=== PATIENT | male | born 1990 | race Caucasian/White ===

== ENCOUNTER 2023-05-19 08:30 | Day surgery (SDC) | payer MEDICARE, MEDICAID ==
[2023-05-06 15:09] LABS: BASOPHILS % (AUTO) 0.7 % (0-1); EOSINOPHILS % (AUTO) 0.3 % (0-6); LYMPHOCYTES # (AUTO) 1.2 X10'3 (1.1-4.8); MEAN CORPUSCULAR HEMOGLOBIN 35.3 PG (27.0-31.0); MEAN CORPUSCULAR HGB CONC 33.8 g/dL (33.0-36.5); MEAN CORPUSCULAR VOLUME 104.2 FL (78-98); MEAN PLATELET VOLUME 7.6 FL (7.4-10.4); MONOCYTES # (AUTO) 0.4 X10'3 (0-0.9); MONOCYTES % (AUTO) 6.3 % (2-12); NEUTROPHILS % (AUTO) 71.7 % (42-75); PRE OP HEMATOCRIT 41.4 % (42.0-52.0); PRE OP PLATELET COUNT 277 X10'3 (140-440); PRE OP WHITE BLOOD COUNT 5.6 10'3 (4.8-10.8); RED BLOOD COUNT 3.98 X10'6 (4.70-6.10); RED CELL DISTRIBUTION WIDTH 15.4 % (11.5-14.5)
[2023-05-06 15:10] LABS: ALBUMIN 3.9 G/DL (3.4-5.0); ALKALINE PHOSPHATASE 84 IU/L (46-116); BLOOD UREA NITROGEN 18 MG/DL (7-18); CALCIUM 8.6 MG/DL (8.5-10.1); CHLORIDE 104 MMOL/L (99-107); CREATININE 1.38 MG/DL (0.60-1.10); PRE OP ALT 71 U/L (30-65); PRE OP BILIRUB, TOTAL 0.4 MG/DL (0.0-1.0); TOTAL PROTEIN 7.8 G/DL (6.4-8.2); eGFR 60 ML/MIN
[2023-05-06 16:02] LABS: PRE OP ANION GAP 6 (8-16); PRE OP GLUCOSE 109 MG/DL (70-104); PRE OP POTASSIUM 4.7 MMOL/L (3.4-5.1); PRE OP SODIUM 141 MMOL/L (135-145)
[2023-05-19] VITALS (11 sets, daily range): BP systolic 94–117; BP diastolic 55–70; PULSE 64–85; RESP 9–19; TEMP 97.4; O2SAT 84–100
[~2023-05-19] VITALS: Ht 149.9 cm; Wt 81.1 kg
[2023-05-19] MEDS: vancomycin 1,500 MG in NS 300ml IV soln IV ONE (05:30)
[~2023-05-19 08:30] MED LIST: ARIP10TA14 PO; FLUO-167 PO; GABA-530 PO; GABA-535 PO; GUAN1TAB PO; MELA3CAP2 PO; PSYL0.4C2 PO; TEN1T PO; VIT B COMPLEX; famotidine 20mg tablet PO ONE; ringers solution, lacted 1,000 ML IV SCH; vancomycin/NS 1 GM in NS 250 ML IV ONE; vit d3
[2023-05-19] MEDS ORDERED: famotidine 20mg tablet PO ONE (10:20)
[2023-05-19] MEDS: ringers solution, lacted 1,000 ML IV SCH (10:22)
[2023-05-19] MEDS: famotidine 20mg tablet PO ONE (10:28)
[2023-05-19 10:47] LABS: PRE OP PROTIME 11.1 SECONDS (9.0-12.0)
[2023-05-19] MEDS ORDERED: BUPIVAcaine/PF 2.5mg/ml (0.25%) 10ml vial ONE (11:03)
[2023-05-19] MEDS ORDERED: cloNIDine hcl/PF 100mcg/ml inj ONE (11:13)
[2023-05-19] MEDS ORDERED: sevoflurane 250ml liquid IH ONE (11:24)
[2023-05-19] MEDS ORDERED: fentaNYL/PF 50MCG/1 ML 2ML syringe ONE (11:32)
[2023-05-19] MEDS ORDERED: midazolam 1 mg/ML 2ml injection ONE (11:32)
[2023-05-19] MEDS ORDERED: meperidine/PF 25mg/ml syringe IV PRN (11:50)
[2023-05-19] MEDS ORDERED: labetalol 20mg/4ml (5mg/ml) syringe IV PRN (11:50)
[2023-05-19] MEDS ORDERED: morphine 4 MG/ML inj SYRINge IV PRN (11:50)
[2023-05-19] MEDS ORDERED: HYDROmorphone/PF 0.2 MG/ML SYRINGE IV PRN ×2 (11:50)
[2023-05-19] MEDS ORDERED: hydrALAZINE 20mg/ml inj. IV PRN (11:50)
[2023-05-19] MEDS ORDERED: ondansetron/PF 4mg/2ml inj IV PRN (11:50)
[2023-05-19] MEDS ORDERED: morphine 2 MG/ML inj. syringe IV PRN (11:50)
[2023-05-19] MEDS ORDERED: ringers solution, lacted 1,000 ML IV SCH (11:50)
[2023-05-19] MEDS ORDERED: proCHLORperazine 10 MG/2 ml inj IV PRN (11:50)
[2023-05-19] MEDS ORDERED: acetaminophen 1,000mg/100ml IV 100 ML IV ONE (11:50)
[2023-05-19] MEDS ORDERED: LIDOcaine 2% (20mg/ml) 5ml vial ONE (12:12)
[2023-05-19] MEDS ORDERED: propofol inj 20 ML IV ONE (12:12)
[2023-05-19] MEDS ORDERED: ondansetron/PF 4mg/2ml inj ONE (12:12)
[2023-05-19] MEDS ORDERED: dexamethasone sod phosphate 4mg/ml inj. ONE (12:12)
[2023-05-19] MEDS ORDERED: ROPIVAcaine 0.5% (5mg/ml) 30ml vial ONE (12:12)
[2023-05-19] MEDS: bacitracin 15gm ointment TP ONE (13:35)
== END 2023-05-19 14:54 | disposition home or self-care (01) ==
LOC: PAS 08:30
PROVIDERS: ATTEND Podiatrist Foot & Ankle Surgery
DX: M20.11 Hallux valgus (acquired), right foot (principal); F84.0 Autistic disorder; F20.9 Schizophrenia, unspecified; Q90.9 Down syndrome, unspecified; G89.18 Other acute postprocedural pain; E66.9 Obesity, unspecified; Z68.36 Body mass index [BMI] 36.0-36.9, adult; Z86.16 Personal history of COVID-19; Z79.899 Other long term (current) drug therapy; Z79.01 Long term (current) use of anticoagulants
CPT/HCPCS: 28297; 36415; 64445; 64450; 71046; 73620; 80053; 82948; 85025; 85610; 85730; 93005; C1713; J0735; J1100; J2250; J2405; J2704; J2795; J3010; J3370; J3490; J7030; J7120; L3260; Z7506; Z7508; Z7512; 76000; A4618; A6253; A6446; A6449; A6455; A7000

== ENCOUNTER 2024-04-20 06:34 | Day surgery (SDC) | payer MEDICARE, MEDICAID ==
[2024-04-14 16:04] LABS: BASOPHILS # (AUTO) 0.1 X10'3 (0-0.2); BASOPHILS % (AUTO) 1.2 % (0-1); EOSINOPHILS % (AUTO) 0.5 % (0-6); LYMPHOCYTES # (AUTO) 1.7 X10'3 (1.1-4.8); LYMPHOCYTES % (AUTO) 32.3 % (21-51); MEAN CORPUSCULAR HEMOGLOBIN 34.2 PG (27.0-31.0); MEAN CORPUSCULAR HGB CONC 34.2 g/dL (33.0-36.5); MEAN CORPUSCULAR VOLUME 99.9 FL (78-98); MEAN PLATELET VOLUME 7.5 FL (7.4-10.4); MONOCYTES # (AUTO) 0.4 X10'3 (0-0.9); MONOCYTES % (AUTO) 7.7 % (2-12); NEUTROPHILS % (AUTO) 58.3 % (42-75); PRE OP HEMATOCRIT 41.5 % (42.0-52.0); PRE OP HEMOGLOBIN 14.2 g/dL (14.0-17.9); PRE OP PLATELET COUNT 235 X10'3 (140-440); PRE OP WHITE BLOOD COUNT 5.1 10'3 (4.8-10.8); RED BLOOD COUNT 4.15 X10'6 (4.70-6.10); RED CELL DISTRIBUTION WIDTH 14.1 % (11.5-14.5)
[2024-04-14 16:09] LABS: BILIRUBIN,URINE NEGATIVE (Neg); CLARITY,URINE CLEAR (Clear); COLOR,URINE YELLOW (Yellow); GLUCOSE, URINE NEGATIVE (Neg); KETONES,URINE NEGATIVE (Neg); LEUKOCYTE ESTERASE ,URINE NEGATIVE (Neg); NITRITES, URINE NEGATIVE (Neg); OCCULT BLOOD,URINE NEGATIVE (Neg); PH,URINE 5.5 (4.8-8.0); PROTEIN,URINE NEGATIVE (Neg); UROBILINOGEN,URINE 0.2 E.U/dL (0.2-1.0)
[2024-04-14 16:11] LABS: UA COLLECTION TYPE VOIDED
[2024-04-14 16:16] LABS: PRE OP PROTIME 10.6 SECONDS (9.0-12.0)
[2024-04-14 16:38] LABS: ALBUMIN 3.6 G/DL (3.4-5.0); ALBUMIN/GLOBULIN RATIO 0.8 (1.1-1.5); ALKALINE PHOSPHATASE 98 IU/L (46-116); BLOOD UREA NITROGEN 19 MG/DL (7-18); BUN/CREATININE RATIO 13.7 (10.0-20.0); CALCIUM 8.7 MG/DL (8.5-10.1); CHLORIDE 102 MMOL/L (99-107); CREATININE 1.39 MG/DL (0.60-1.10); PRE OP ALT 44 U/L (30-65); PRE OP ANION GAP 9 (8-16); PRE OP AST 24 U/L (10-37); PRE OP BILIRUB, TOTAL 0.4 MG/DL (0.0-1.0); PRE OP GLUCOSE 111 MG/DL (70-104); PRE OP POTASSIUM 4.3 MMOL/L (3.4-5.1); PRE OP SODIUM 138 MMOL/L (135-145); TOTAL CARBON DIOXIDE 26.9 MMOL/L (24-32); TOTAL PROTEIN 7.9 G/DL (6.4-8.2); eGFR 59 ML/MIN
[2024-04-20] VITALS (10 sets, daily range): BP systolic 102–121; BP diastolic 52–74; PULSE 67–122; RESP 15–18; TEMP 97.3; O2SAT 92–97
[~2024-04-20] VITALS: Ht 152.4 cm; Wt 77.7 kg
[~2024-04-20 06:34] MED LIST changes: +GABA-1555 PO; -GABA-530 PO; -GUAN1TAB PO; +HYDR-3686 PO; +KRIL500C PO; +METF-900 PO; +MULT-1085 PO; -TEN1T PO; -famotidine 20mg tablet PO ONE; -ringers solution, lacted 1,000 ML IV SCH; -vancomycin/NS 1 GM in NS 250 ML IV ONE
[2024-04-20] MEDS ORDERED: BUPIVAcaine 2.5mg/ml inj 50ml vial (contains preservative) ONE (06:45)
[2024-04-20] MEDS ORDERED: bacitracin 15gm ointment TP ONE (06:45)
[2024-04-20] MEDS: ringers solution, lacted 1,000 ML IV SCH (07:22)
[2024-04-20] MEDS: famotidine 20mg tablet PO ONE (07:22)
[2024-04-20] MEDS: VANCOMYCIN/H2O 1.5g/300mL PB 300 ML IV ONE (07:22)
[2024-04-20] MEDS ORDERED: fentaNYL/PF 50MCG/1 ML 2ML syringe ONE ×2 (08:17→11:04)
[2024-04-20] MEDS ORDERED: propofol inj 20 ML IV ONE (08:18)
[2024-04-20] MEDS ORDERED: midazolam 1 mg/ML 2ml injection ONE (08:18)
[2024-04-20] MEDS ORDERED: ondansetron/PF 4mg/2ml inj ONE (08:18)
[2024-04-20] MEDS ORDERED: ROPIVAcaine 0.5% (5mg/ml) 30ml vial ONE (08:18)
[2024-04-20] MEDS ORDERED: dexamethasone sod phosphate 4mg/ml inj. ONE (08:18)
[2024-04-20] MEDS ORDERED: LIDOcaine 2% (20mg/ml) 5ml vial ONE (08:18)
[2024-04-20] MEDS ORDERED: acetaminophen 1,000mg/100ml IV 100 ML IV ONE (08:22)
[2024-04-20] MEDS ORDERED: sevoflurane 250ml liquid IH ONE (08:41)
[2024-04-20] MEDS ORDERED: ceFAZolin 1000mg inj ONE ×2 (09:07)
[2024-04-20] MEDS ORDERED: ringers solution, lacted 1,000 ML IV SCH (09:20)
[2024-04-20] MEDS ORDERED: ondansetron/PF 4mg/2ml inj IV PRN (09:20)
[2024-04-20] MEDS ORDERED: morphine 2 MG/ML inj. syringe IV PRN (09:20)
[2024-04-20] MEDS ORDERED: fentaNYL/PF 50MCG/1 ML 2ML syringe IV PRN ×2 (09:20)
[2024-04-20] MEDS ORDERED: enalaprilat 1.25mg/ml 2ml vial IV PRN (09:20)
[2024-04-20] MEDS ORDERED: hydrALAZINE 20mg/ml inj. IV PRN (09:20)
[2024-04-20] MEDS ORDERED: morphine 4 MG/ML inj SYRINge IV PRN (09:20)
[2024-04-20] MEDS ORDERED: ePHEDrine 50MG/ML INJ. ONE (09:23)
== END 2024-04-20 12:55 | disposition home or self-care (01) ==
LOC: PAS 06:34
PROVIDERS: ATTEND Podiatrist Foot & Ankle Surgery
DX: M20.12 Hallux valgus (acquired), left foot (principal); Q90.9 Down syndrome, unspecified; F20.9 Schizophrenia, unspecified; M79.675 Pain in left toe(s); G89.18 Other acute postprocedural pain; E66.9 Obesity, unspecified; Z90.89 Acquired absence of other organs; Z98.890 Other specified postprocedural states; Z79.899 Other long term (current) drug therapy
CPT/HCPCS: 20900; 28297; 28298; 36415; 64450; 71046; 73620; 80053; 81003; 82948; 85025; 85610; 85730; 93005; A4618; A6253; A6402; A6446; A6449; A6455; A7000; C1713; J0131; J0690; J1100; J2003; J2250; J2405; J2704; J2795; J3010; J3372; J3490; J7030; J7120; Z7506; Z7508; Z7512; Z7610; 76000